=== PATIENT | male | born 1990 | race Caucasian/White ===

== ENCOUNTER 2016-11-27 05:42 | Emergency (ER) | payer OTHER ==
[~2016-11-27] VITALS: Ht 172.7 cm; Wt 72.7 kg
[2016-11-27 05:53] VITALS: Ht 172.7 cm; Wt 72.7 kg
[2016-11-27] MEDS ORDERED: CEPH-443 PO (07:02)
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
== END 2016-11-27 07:12 ==
LOC: E/R 05:42 → FTE 07:12
DX: S01.511A Laceration without foreign body of lip, initial encounter (principal); R40.2252 Coma scale, best verbal response, oriented, at arrival to emergency department; S01.81XA Laceration without foreign body of other part of head, initial encounter; R40.2142 Coma scale, eyes open, spontaneous, at arrival to emergency department; R40.2362 Coma scale, best motor response, obeys commands, at arrival to emergency department; V49.50XA Passenger injured in collision with unspecified motor vehicles in traffic accident, initial encounter
CPT/HCPCS: 99283